=== PATIENT | female | born 1940 | race Caucasian/White ===

== ENCOUNTER 2019-03-21 14:13 | Emergency (ER) | payer MEDICARE ==
[~2019-03-21] VITALS: Ht 160 cm; Wt 83.9 kg
[~2019-03-21 14:13] MED LIST: APIX5TAB3 PO; CALC-159 PO; DIGO250T2 PO; LOSA1TAB41 PO; OMEG1CAP2 PO; OMEP40CA13 PO; SOTA80TA73 PO
[2019-03-21 15:04] LABS: BASOPHILS # (AUTO) 0.1 X10'3 (0-0.2); BASOPHILS % (AUTO) 1.2 % (0-1); EOSINOPHILS # (AUTO) 0.2 X10'3 (0-0.9); EOSINOPHILS % (AUTO) 1.5 % (0-6); HEMATOCRIT 39.2 % (35.0-45.0); HEMOGLOBIN 13.5 g/dl (12.0-16.0); LYMPHOCYTES # (AUTO) 4.6 X10'3 (1.1-4.8); MEAN CORPUSCULAR HEMOGLOBIN 32.1 PG (27.0-31.0); MEAN CORPUSCULAR HGB CONC 34.6 g/dL (33.0-36.5); MEAN CORPUSCULAR VOLUME 92.9 FL (78-98); MEAN PLATELET VOLUME 7.7 FL (7.4-10.4); MONOCYTES # (AUTO) 0.4 X10'3 (0-0.9); MONOCYTES % (AUTO) 3.5 % (2-12); NEUTROPHILS # (AUTO) 6.2 X10'3 (1.8-7.7); NEUTROPHILS % (AUTO) 53.8 % (42-75); PLATELET COUNT 262 X10'3 (140-440); RED BLOOD COUNT 4.22 X10'6 (4.20-5.60); RED CELL DISTRIBUTION WIDTH 14.1 % (11.5-14.5); WHITE BLOOD COUNT 11.4 X10'3 (4.5-11.0)
[2019-03-21 15:15] LABS: PARTIAL THROMBOPLASTIN TIME 39 SECONDS (22-32)
[2019-03-21 15:17] LABS: ALANINE AMINOTRANSFERASE 34 U/L (12-78); ALBUMIN 3.9 G/DL (3.4-5.0); ALBUMIN/GLOBULIN RATIO 1.3 (1.1-1.5); ALKALINE PHOSPHATASE 60 IU/L (46-116); ANION GAP 12 (8-16); ASPARTATE AMINO TRANSFERASE 22 U/L (10-37); BILIRUBIN,TOTAL 0.4 MG/DL (0.1-1.0); BLOOD UREA NITROGEN 19 MG/DL (7-18); BUN/CREATININE RATIO 18.6 (6.6-38.0); CALCIUM 9.3 MG/DL (8.5-10.1); CHLORIDE 103 MMOL/L (99-107); CREATININE 1.02 MG/DL (0.40-0.90); GLUCOSE 107 MG/DL (70-104); POTASSIUM 4.3 MMOL/L (3.5-5.1); SODIUM 139 MMOL/L (135-145); TOTAL CARBON DIOXIDE 24.1 MMOL/L (24-32); eGFR 52 ML/MIN
[2019-03-21] MEDS ORDERED: LIDOcaine 1% W/epiNEPHrine 1:200,000 10ml vial IJ ONE (15:25)
[2019-03-21] MEDS ORDERED: TETanus/Pertussis (Acell)/Diphther VAC/PF (Tdap-Adult) 0.5ml syringe IMVAC ONE (15:25)
[2019-03-21] MEDS ORDERED: traMADol 50MG tablet PO ONE (15:25)
[2019-03-21] MEDS ORDERED: bacitracin 15gm ointment TP ONE (15:25)
[2019-03-21 17:23] VITALS: BP 175/79
== END 2019-03-21 17:25 | disposition home or self-care (01) ==
LOC: ER 14:14
DX: S01.21XA Laceration without foreign body of nose, initial encounter (principal); S50.811A Abrasion of right forearm, initial encounter; M25.532 Pain in left wrist; M25.531 Pain in right wrist; I48.91 Unspecified atrial fibrillation; Z79.01 Long term (current) use of anticoagulants; Z79.899 Other long term (current) drug therapy; W18.39XA Other fall on same level, initial encounter; Y93.89 Activity, other specified; Y92.009 Unspecified place in unspecified non-institutional (private) residence as the place of occurrence of the external cause; Y99.8 Other external cause status
CPT/HCPCS: 12011; 29125; 36415; 70450; 73110; 80053; 85025; 85610; 85730; 90471; 90715; 99284

== ENCOUNTER 2022-01-15 08:14 | Day surgery (SDC) | payer MEDICARE ==
[2022-01-14 12:29] LABS: BASOPHILS # (AUTO) 0.1 X10'3 (0-0.2); BASOPHILS % (AUTO) 0.9 % (0-1); EOSINOPHILS # (AUTO) 0.3 X10'3 (0-0.9); EOSINOPHILS % (AUTO) 2.8 % (0-6); HEMOGLOBIN 12.7 g/dl (12.0-16.0); LYMPHOCYTES % (AUTO) 45.9 % (21-51); MEAN CORPUSCULAR HEMOGLOBIN 32.4 PG (27.0-31.0); MEAN CORPUSCULAR HGB CONC 33.5 g/dL (33.0-36.5); MEAN CORPUSCULAR VOLUME 96.6 FL (78-98); MEAN PLATELET VOLUME 7.8 FL (7.4-10.4); MONOCYTES # (AUTO) 0.6 X10'3 (0-0.9); MONOCYTES % (AUTO) 5.1 % (2-12); NEUTROPHILS # (AUTO) 4.9 X10'3 (1.8-7.7); NEUTROPHILS % (AUTO) 45.3 % (42-75); PLATELET COUNT 269 X10'3 (140-440); RED BLOOD COUNT 3.93 X10'6 (4.20-5.60); RED CELL DISTRIBUTION WIDTH 13.9 % (11.5-14.5); WHITE BLOOD COUNT 10.8 X10'3 (4.5-11.0)
[2022-01-14 12:40] LABS: ALBUMIN 3.7 G/DL (3.4-5.0); ANION GAP 9 (8-16); BLOOD UREA NITROGEN 24 MG/DL (7-18); BUN/CREATININE RATIO 20.7 (6.6-38.0); CALCIUM 9.3 MG/DL (8.5-10.1); CHLORIDE 106 MMOL/L (99-107); CREATININE 1.16 MG/DL (0.40-0.90); GLUCOSE 114 MG/DL (70-104); POTASSIUM 4.5 MMOL/L (3.5-5.1); SODIUM 138 MMOL/L (135-145); TOTAL CARBON DIOXIDE 23.4 MMOL/L (24-32); eGFR 45 ML/MIN
[~2022-01-15] VITALS: Ht 160 cm; Wt 94.3 kg
[2022-01-15] VITALS (11 sets, daily range): BP systolic 97–146; BP diastolic 50–88
[~2022-01-15 08:14] MED LIST changes: -OMEP40CA13 PO; +OMEP40CA21 PO
[2022-01-15] MEDS ORDERED: SOTA80TA73 PO ×2 (08:44)
[2022-01-15] MEDS ORDERED: DILT-36 PO (08:44)
[2022-01-15] MEDS ORDERED: LORazepam 0.5 MG tablet PO ONE (08:50)
[2022-01-15] MEDS ORDERED: morphine 10mg/ml inj. IV ONE (08:50)
[2022-01-15] MEDS ORDERED: MIDAZolam 1mg/ml 10ml vial IV ONE (08:50)
[2022-01-15] MEDS ORDERED: diphenhydrAMINE 25mg capsule PO ONE (08:50)
[2022-01-15] MEDS ORDERED: atropine 0.1mg/ml 10ml syringe IV ONE (08:50)
[2022-01-15] MEDS ORDERED: amiodarone 150mg/dext, iso-os 100 ML IV ONE (08:50)
== END 2022-01-15 11:30 | disposition home or self-care (01) ==
LOC: SSTAY O 08:14
PROVIDERS: ATTEND Internal Medicine Cardiovascular Disease
DX: I48.19 Other persistent atrial fibrillation (principal); I48.0 Paroxysmal atrial fibrillation; I47.1 Supraventricular tachycardia; I10 Essential (primary) hypertension; E78.5 Hyperlipidemia, unspecified; Z79.01 Long term (current) use of anticoagulants; Z79.899 Other long term (current) drug therapy; Z98.890 Other specified postprocedural states; M19.90 Unspecified osteoarthritis, unspecified site; Z90.49 Acquired absence of other specified parts of digestive tract; Z96.653 Presence of artificial knee joint, bilateral; Z82.5 Family history of asthma and other chronic lower respiratory diseases
CPT/HCPCS: 36415; 80048; 85025; 85610; 92960; 93005; J2250; J2274; J7030; Q0163; A4620

== ENCOUNTER 2024-07-05 07:04 | Day surgery (SDC) | payer MEDICARE ==
[2024-07-04 11:49] LABS: BASOPHILS # (AUTO) 0.1 X10'3 (0-0.2); BASOPHILS % (AUTO) 0.5 % (0-1); EOSINOPHILS # (AUTO) 0.2 X10'3 (0-0.9); HEMATOCRIT 40.2 % (35.0-45.0); HEMOGLOBIN 13.6 g/dl (12.0-16.0); LYMPHOCYTES # (AUTO) 5.9 X10'3 (1.1-4.8); LYMPHOCYTES % (AUTO) 48.1 % (21-51); MEAN CORPUSCULAR HEMOGLOBIN 31.4 PG (27.0-31.0); MEAN CORPUSCULAR HGB CONC 33.8 g/dL (33.0-36.5); MEAN CORPUSCULAR VOLUME 92.9 FL (78-98); MEAN PLATELET VOLUME 7.7 FL (7.4-10.4); MONOCYTES # (AUTO) 0.5 X10'3 (0-0.9); MONOCYTES % (AUTO) 4.1 % (2-12); NEUTROPHILS # (AUTO) 5.6 X10'3 (1.8-7.7); NEUTROPHILS % (AUTO) 45.3 % (42-75); PLATELET COUNT 262 X10'3 (140-440); RED BLOOD COUNT 4.33 X10'6 (4.20-5.60); RED CELL DISTRIBUTION WIDTH 15.9 % (11.5-14.5); WHITE BLOOD COUNT 12.3 X10'3 (4.5-11.0)
[2024-07-04 12:00] LABS: ALBUMIN 3.7 G/DL (3.4-5.0); ANION GAP 9 (8-16); BLOOD UREA NITROGEN 17 MG/DL (7-18); BUN/CREATININE RATIO 14.5 (10.0-20.0); CHLORIDE 107 MMOL/L (99-107); CREATININE 1.17 MG/DL (0.40-0.90); GLUCOSE 117 MG/DL (70-104); POTASSIUM 4.7 MMOL/L (3.5-5.1); SODIUM 141 MMOL/L (135-145); TOTAL CARBON DIOXIDE 25.2 MMOL/L (24-32); eGFR 44 ML/MIN
[2024-07-04 12:03] LABS: INR 1.1 INR; PROTHROMBIN TIME 11.3 SECONDS (9.0-12.0)
[~2024-07-05] VITALS: Ht 160 cm; Wt 93.3 kg
[2024-07-05] VITALS (9 sets, daily range): BP systolic 151–192; BP diastolic 60–86; PULSE 68–83; RESP 13–19; TEMP 97.6; O2SAT 93–98
[~2024-07-05 07:04] MED LIST changes: -DIGO250T2 PO; -OMEP40CA21 PO; +SOTA80TA46 PO; -SOTA80TA73 PO
[2024-07-05] MEDS ORDERED: diphenhydrAMINE 25mg capsule PO ONE (07:25)
[2024-07-05] MEDS ORDERED: atropine 0.1mg/ml 10ml syringe IV ONE (07:25)
[2024-07-05] MEDS ORDERED: LORazepam 0.5 MG tablet PO ONE (07:25)
[2024-07-05] MEDS ORDERED: amiodarone 150mg/dext, iso-os 100 ML IV ONE (07:25)
--- NOTE | 2024-07-05 07:27 | ELECTROCARDIOGRAPH REPORT ---
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 Deana Srivastava Measurements Intervals [place] Rate: 72 P: 0 [place]: 0 QRS: 80 QRSD: 88 T: 64 QT: 420 QTc: 460 Interpretive Statements Atrial fibrillation Ventricular bigeminy Electronically Signed On 07-05-2024 9:10:[address] Deana Srivastava Please click the below link to view image of tracing.
[2024-07-05] MEDS ORDERED: FURO20TA4 PO (07:38)
[2024-07-05] MEDS ORDERED: AMI200T PO (07:39)
[2024-07-05] MEDS ORDERED: POTA-366 PO (07:41)
[2024-07-05] MEDS: morphine 10mg/ml inj. IV ONE (09:30)
[2024-07-05] MEDS: MIDAZolam 1mg/ml 10ml vial IV ONE (09:30)
[2024-07-05] MEDS: normal saline 1000ml 1,000 ML IV SCH (09:31)
--- NOTE | 2024-07-05 09:49 | ELECTROCARDIOGRAPH REPORT ---
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 SHARON Caballero Measurements Intervals [place] Rate: 76 P: 60 PA: 219 QRS: 59 QRSD: 84 T: 53 QT: 417 QTc: 469 Interpretive Statements Sinus rhythm Ventricular premature complex Borderline prolonged PA interval Low voltage, precordial leads Electronically Signed On 07-05-2024 16:35:[address] SHARON Caballero Please click the below link to view image of tracing.
--- NOTE | 2024-07-05 10:05 | CARDIOLOGY REPORT ---
DATE OF SERVICE: 07/05/2024 DICTATING PHYSICIAN: SHARON Lawson MD ELECTRICAL CARDIOVERSION PRIMARY PHYSICIAN: Emeka Vallejo MD FABRICATION DEPARTMENT SUPERVISOR: SHARON Lawson MD INDICATION: An 84-year-old postmenopausal female with hypertension, hyperlipidemia, sleep apnea, mild obesity with chronic diastolic heart failure and paroxysmal atrial fibrillation. The patient's PAF history dates back to 07/15/2018. Initially, briefly, she was on digoxin. Before digoxin, she was treated with sotalol. Lately, her AFib has recurred back in 05/2024. The patient 's sotalol was switched to amiodarone. After discussing risks, benefits, and alternative options, the patient prefers to proceed with cardioversion. Risks, benefits, and alternative options were discussed, informed consent obtained. DESCRIPTION OF PROCEDURE: The patient underwent anterior and posterior patches used. Using biphasic electrical energy 150 joules, converted to normal sinus rhythm and remained in normal sinus rhythm. IMPRESSION: An 84-year-old female with paroxysmal atrial fibrillation, converted to normal sinus rhythm with one electrical cardioversion. RECOMMENDATIONS: Continue apixaban 5 mg p.o. b.i.d., amiodarone 200 mg p.o. daily and carvedilol 6.25 mg p.o. b.i.d. SHARON Lawson MD TID: [id number] RECEIPT: [id number] SUZIE/JOSE ROBERTO cc: Emeka Vallejo MD
== END 2024-07-05 10:45 | disposition home or self-care (01) ==
LOC: SSTAY O 07:04
PROVIDERS: ATTEND Internal Medicine Cardiovascular Disease
DX: I48.0 Paroxysmal atrial fibrillation (principal); I49.3 Ventricular premature depolarization; I11.0 Hypertensive heart disease with heart failure; E78.5 Hyperlipidemia, unspecified; G47.30 Sleep apnea, unspecified; E66.9 Obesity, unspecified; I50.32 Chronic diastolic (congestive) heart failure; I34.0 Nonrheumatic mitral (valve) insufficiency; I36.1 Nonrheumatic tricuspid (valve) insufficiency; G47.39 Other sleep apnea; Z90.49 Acquired absence of other specified parts of digestive tract; Z79.899 Other long term (current) drug therapy; Z96.653 Presence of artificial knee joint, bilateral; Z98.890 Other specified postprocedural states
CPT/HCPCS: 36415; 80048; 85025; 85610; 92960; 93005; J2250; J2270; J7030; J2274

== ENCOUNTER 2024-10-07 09:33 | Day surgery (SDC) | payer MEDICARE ==
[~2024-10-07] VITALS: Ht 160 cm; Wt 91.6 kg
[~2024-10-07 09:33] MED LIST changes: +AMIO200T76 PO; +FURO20TA4 PO; +POTA-366 PO; -SOTA80TA46 PO
[2024-10-07] MEDS ORDERED: SPIR25TA5 PO (10:03)
[2024-10-07] MEDS ORDERED: LOSA100T58 PO (10:05)
[2024-10-07] MEDS ORDERED: METF-900 PO (10:05)
[2024-10-07] MEDS ORDERED: magnesium PO (10:05)
[2024-10-07] MEDS ORDERED: CARV6.253 PO (10:05)
[2024-10-07] MEDS ORDERED: normal saline 1000ml 1,000 ML IV SCH (10:10)
[2024-10-07] MEDS ORDERED: amiodarone 150mg/dext, iso-os 100 ML IV ONE (10:10)
[2024-10-07] MEDS ORDERED: morphine 10mg/ml inj. IV ONE (10:10)
[2024-10-07] MEDS ORDERED: atropine 0.1mg/ml 10ml syringe IV ONE (10:10)
[2024-10-07] MEDS ORDERED: MIDAZolam 1mg/ml 10ml vial IV ONE (10:10)
[2024-10-07 10:22] VITALS: BP 145/66; PULSE 70; TEMP 97.7; O2SAT 93
[2024-10-07 10:30] VITALS: RESP 15; O2SAT 95
--- NOTE | 2024-10-07 10:48 | ELECTROCARDIOGRAPH REPORT ---
[facility] Test Date: 2024-10-07 Test Time: 10:03:09 Pat Name: SETH FRANKEL Department: [facility]ST FLOOR Room: Gender: F Recreational Leader: BETTY : 1940 Requested By: BEBE CABALLERO Order Number: [id number] Reading MD: Dr. SHARON Caballero Measurements Intervals [place] Rate: 72 P: 0 AL: 0 QRS: 48 QRSD: 112 T: 34 QT: 440 QTc: 482 Interpretive Statements Atrial Flutter /fibrillation Borderline intraventricular conduction delay Low voltage, extremity leads Minimal ST depression, inferior leads Minimal ST elevation, lateral leads Electronically Signed On 10-08-2024 15:39:[address] SHARON Caballero Please click the below link to view image of tracing.
[2024-10-07 11:00] LABS: CREATININE 1.42 MG/DL (0.40-0.90); TOTAL CARBON DIOXIDE 27.1 MMOL/L (24-32); eCRCL 24 ML/MIN; eGFR 35 ML/MIN
[2024-10-07 11:01] LABS: MEAN PLATELET VOLUME 8.4 FL (7.4-10.4); RED CELL DISTRIBUTION WIDTH 13.9 % (11.5-14.5)
[2024-10-07 11:03] LABS: INR 1.1 INR
[2024-10-07] MEDS ORDERED: midazolam 1 mg/ML 2ml injection ONE (11:26)
[2024-10-07] MEDS ORDERED: fentaNYL/PF 50MCG/1 ML 2ML syringe ONE (11:26)
[2024-10-07 11:58] LABS: EOSINOPHILS % (MANUAL) 1.0 % (0-6); LYMPHOCYTES % (MANUAL) 57.0 % (21-51); MONOCYTES % (MANUAL) 6.0 % (2-12); NEUTROPHILS % (MANUAL) 36.0 % (42-75)
[2024-10-07 11:59] VITALS: BP 126/55; PULSE 64; RESP 14; O2SAT 93
[2024-10-07 11:59] LABS: PLATELET ESTIMATE NORMAL
[2024-10-07 12:15] VITALS: BP 127/59; PULSE 63; RESP 15; O2SAT 93
--- NOTE | 2024-10-07 12:20 | ELECTROCARDIOGRAPH REPORT ---
[facility] Test Date: 2024-10-07 Test Time: 12:16:59 Pat Name: SETH FRANKEL Department: [facility] Patient ID: [facility]-[id number] Room: Gender: F Corn Picker: BETTY : 1940 Requested By: BEBE CABALLERO Order Number: [id number] Reading MD: Dr. SHARON Caballero Measurements Intervals [place] Rate: 62 P: 79 WI: 218 QRS: 72 QRSD: 91 T: 57 QT: 471 QTc: 479 Interpretive Statements Sinus rhythm Ventricular premature complex Borderline prolonged [place] interval Low voltage, extremity and precordial leads Electronically Signed On 10-08-2024 15:39:[address] SHARON Caballero Please click the below link to view image of tracing.
[2024-10-07 12:30] VITALS: BP 128/60; PULSE 62; RESP 14; O2SAT 95
--- NOTE | 2024-10-07 17:29 | CARDIOLOGY REPORT ---
DATE OF SERVICE: 10/07/2024 DICTATING PHYSICIAN: SHARON Lawson MD ELECTRICAL CARDIOVERSION: PRIMARY PHYSICIAN: Emeka Vallejo MD INSIDE SALES TERRITORY MANAGER: SHARON Lawson MD GENDER: Female. AGE: 84. INDICATION: The patient is an 84-year-old postmenopausal female with history of hypertension, hyperlipidemia, PAF, and chronic diastolic heart failure. Her history of PAF goes back to 06/2018. Initially, she was started on sotalol and Eliquis and then the patient had a recurrence. She earlier required cardioversion in 06/2024. At that time, she was on amiodarone. Now she has recurred, so she was reloaded with amiodarone undergoing electrocautery. Risks, benefits, and alternative options were discussed. Informed consent was obtained. DESCRIPTION OF PROCEDURE: Anterior and posterior patch was used. Using biphasic electrical energy 200 joules, converted to normal sinus rhythm and remained in normal sinus rhythm. RECOMMENDATIONS: Continue Eliquis, amiodarone, and carvedilol. She is taking amiodarone once a day. SHARON Lawson MD TID: [id number] RECEIPT: [id number] /ESTRELLA/JARRETT cc: Emeka Vallejo MD
== END 2024-10-07 12:50 | disposition home or self-care (01) ==
LOC: SSTAY O 09:33
PROVIDERS: ATTEND Internal Medicine Cardiovascular Disease
DX: I48.0 Paroxysmal atrial fibrillation (principal); I49.3 Ventricular premature depolarization; I48.92 Unspecified atrial flutter; I11.0 Hypertensive heart disease with heart failure; I50.32 Chronic diastolic (congestive) heart failure; E78.5 Hyperlipidemia, unspecified; G47.39 Other sleep apnea; M19.90 Unspecified osteoarthritis, unspecified site; Z79.01 Long term (current) use of anticoagulants; Z79.84 Long term (current) use of oral hypoglycemic drugs; Z79.899 Other long term (current) drug therapy; Z90.49 Acquired absence of other specified parts of digestive tract; Z96.653 Presence of artificial knee joint, bilateral; Z82.5 Family history of asthma and other chronic lower respiratory diseases
CPT/HCPCS: 36415; 80048; 85025; 85610; 92960; 93005; J2250; J3010; J7030; 85007; 99152